=== PATIENT | male | born 1960 | race Caucasian/White ===

== ENCOUNTER 2020-10-06 02:39 | Emergency (ER) | payer OTHER ==
[2020-10-06 03:12] LABS: RED BLOOD COUNT 5.26 M/UL (4.20-5.50); WHITE BLOOD COUNT 8.9 K/UL (4.5-11.0)
[2020-10-06 03:31] LABS: BUN/CREATININE RATIO 13 (0-10)
== END 2020-10-06 09:50 | disposition other institution (70) ==
LOC: ER1 02:39
PROVIDERS: Emergency Medicine
DX: T78.3XXA Angioneurotic edema, initial encounter (principal)
CPT/HCPCS: 70491; 80053; 85025; 96374; 96375; 99284; J0295; J1100; Q9967